=== PATIENT | male | born 1970 | race Hispanic/Latino ===

== ENCOUNTER 2018-08-28 08:09 | Day surgery (SDC) | payer OTHER ==
[~2018-08-28 08:09] MED LIST: NACL BACTERIOSTATIC INFILTRATI ONE
[2018-08-28] MEDS ORDERED: ANCEF/STERILE WATER 2 GM/20 ML IV NR (09:09)
[2018-08-28] MEDS ORDERED: PEPCID IV NR (09:10)
[2018-08-28] MEDS ORDERED: LACTATED RINGERS 1,000 ML IV SCH (09:10)
[2018-08-28] MEDS: VERSED IV PRN ×2 (09:20→09:35)
[2018-08-28] MEDS ORDERED: DIPRIVAN 10 MG/ML IV ONE (09:36)
[2018-08-28] MEDS ORDERED: XYLOCAINE MPF 2% ONE (09:36)
[2018-08-28] MEDS ORDERED: DILAUDID ONE (09:36)
--- NOTE | 2018-08-28 09:48 | Anesthesia Consultation ---
Anesthesia Consult and Med Hx Date of service: 08/28/18 - Airway Anesthetic Teeth Evaluation: Good ROM Head & Neck: Adequate Mental/Hyoid Distance: Adequate Mallampati Class: Class III Intubation Access Assessment: Probably Good - Pulmonary Exam CTA: Yes - Cardiac Exam Cardiac Exam: RRR - Pre-Operative Health Status ASA Pre-Surgery Classification: ASA2 Proposed Anesthetic Plan: General - Pre-Anesthesia Comment Pre-Anesthesia Comments: very anxious likely needs 4mg versed - Pulmonary Hx Smoking: Yes (STOPPED X 1 WEEK ( 1 PPD )) Hx Sleep Apnea: No (JUANY PRE SCREEN LOW RISK) - Cardiovascular System Hx Hypertension: No - Central Nervous System Hx Back Pain: Yes - Other Systems Hx Substance Use: Yes (REGULAR MARIJUANA USE) Hx Cancer: No - Additional Comments Anesthesia Medical History Comments: no problems with anesthesia in the past.
--- NOTE | 2018-08-28 09:49 | Anesthesia Day of Surgery ---
Anesthesia Day of Surgery - Day of Surgery Patient Examined: Yes Patient H&P Reviewed: Yes Patient is NPO: Yes Beta Blockers: No Cardiac Clearance: Yes (had cardiac clearance performed for unknown reason ) Pulmonary Clearance: No Robert's Test: N/A
[2018-08-28] MEDS ORDERED: REGLAN IV PRN (09:55)
[2018-08-28] MEDS ORDERED: ZOFRAN IV PRN (09:55)
[2018-08-28] MEDS ORDERED: DILAUDID IV PRN (09:55)
[2018-08-28] MEDS ORDERED: TORADOL IV PRN (09:55)
[2018-08-28] MEDS ORDERED: SUBLIMAZE IV PRN (09:55)
[2018-08-28] MEDS ORDERED: MITOMYCIN OP ONE (10:08)
[2018-08-28] MEDS ORDERED: NACL 0.9% IR ONE (10:10)
[2018-08-28] MEDS ORDERED: LASIX ONE (10:48)
[2018-08-28] MEDS ORDERED: ZOFRAN ONE (10:52)
[2018-08-28] MEDS ORDERED: MITOMYCIN UD ONE ×3 (11:00)
[2018-08-28] MEDS ORDERED: NACL 0.9% UD ONE ×2 (11:00)
[2018-08-28] MEDS ORDERED: WATER FOR INJ UD ONE (11:00)
--- NOTE | 2018-08-28 11:05 | Discharge Summary ---
Short Stay Discharge Plan Activity: other (no straining ) Weight Bearing Status: Full Weight Bearing Diet: regular, low fat Special Instructions: other (teach catheter care ) Durable Medical Equipment Needed Upon Discharge: other (home with noguera ) Follow up with: PRIMARY CARE, [Primary Care Provider] - 7 Days RUTH GOLDSMITH MD [Staff Physician] - 7 Days
--- NOTE | 2018-08-28 11:06 | Post Operative Note ---
Date of procedure: 08/28/18 Pre-op diagnosis: bladder tumor Post-op diagnosis: same Findings: solid tumor Procedure: cysto rpg turbt instillation post resection Anesthesia: GETA Surgeon: RUTH GOLDSMITH Estimated blood loss: minimal Pathology: list (bladder) Specimen disposition: to lab Condition: stable Disposition: PACU
--- NOTE | 2018-08-28 11:47 | Operative Report ---
PREOPERATIVE DIAGNOSIS: Right-sided posterolateral bladder mass. POSTOPERATIVE DIAGNOSIS: Right-sided posterolateral bladder mass. PROCEDURE: Cystoscopy, resection of bladder tumor, retrogrades and instillation of mitomycin. SURGEON: Jacob Ruiz MD ANESTHESIA: General. FINDINGS: This is a gentleman with gross hematuria. He now presents for treatment. All risks and complications were discussed. DESCRIPTION OF PROCEDURE: The patient was brought to the operating room and placed on the operating table. Following induction of anesthesia, placed in lithotomy position, prepped and draped in usual sterile fashion. The cystoscope was placed and there was a solid tumor, did not look like a very invasive and it was very localized. It was above and slightly medial to the right orifice. The bipolar was placed under direct vision and there was a little bulbomembranous narrowing just start with, but we were able to easily pass the scope without difficulty. The bipolar was placed at the usual settings. Resection was carried out down to muscle. We definitely went into the muscle. Hemostasis was assured with the coagulation current and the ball electrode. The patient tolerated the procedure well. Retrograde showed good drainage, delicate collecting system bilaterally. Specimen sent to pathology. The patient tolerated the procedure well. He will be given 40 mg of mitomycin before he goes to recovery room. He has a 3-way 22 catheter, which is plugged. There was no significant bleeding. Hopefully, he will need a Graham drip, brought to recovery in stable condition. Family notified. JOB# [id number] BERTHA/ANGELA
[2018-08-28] MEDS: DILAUDID IV PRN ×2 (11:55→12:05)
[2018-08-28 13:37] VITALS: BP 121/76
--- NOTE | 2018-08-29 07:40 | Fluoroscopy Report ---
FLUOROSCOPY RETROGRADE UROGRAPHY: HISTORY: Gross hematuria. FINDINGS: Fluoroscopy was provided by radiology during retrograde urography by the urologist. 5 fluoroscopic images were captured. There is adequate filling of the ureters and intrarenal collecting systems with no filling defects or anatomic abnormalities identified. Please correlate with the procedural report if needed. IMPRESSION: Retrograde pyelograms within normal limits.
== END 2018-08-28 14:30 | disposition home or self-care (01) ==
LOC: OR 08:09
PROVIDERS: ATTEND Urology
DX: C67.4 Malignant neoplasm of posterior wall of bladder (principal); R31.0 Gross hematuria; N32.89 Other specified disorders of bladder; F41.9 Anxiety disorder, unspecified; Z79.899 Other long term (current) drug therapy; Z87.891 Personal history of nicotine dependence; Z90.49 Acquired absence of other specified parts of digestive tract; Z98.890 Other specified postprocedural states
CPT/HCPCS: 51720; 52235; 74420; 88305; 88341; A4217; J0690; J1170; J1940; J2250; J2405; J2704; J3010; J7120; Q9967; 88307; 88342; J9280